=== PATIENT | male | born 1945 | race Caucasian/White ===

== ENCOUNTER 2025-07-10 13:07 | Emergency (ER) | payer MEDICARE ==
[2025-07-10 13:54] LABS: #Basophils 0.03 10x3/uL (0.0-0.2); #Eosinophils 1.21 10x3/uL (0.0-0.5); #Monocytes 0.71 10x3/uL (0.0-1.1); #Neutrophils 4.56 10x3/uL (1.5-8.4); %Basophils 0.4 % (0.0-2.0); %Eosinophils 16.0 % (0.0-6.0); %Lymphocytes 13.7 % (18.0-47.0); %Monocytes 9.4 % (0.0-10.0); %Neutrophils 60.2 % (40.0-75.0); Hematocrit 47.0 % (38.8-50.0); Hemoglobin 15.5 g/dL (13.5-17.5); Mean Corpuscular Hemoglobin 27.9 pg (27.0-33.0); Mean Corpuscular Volume 84.5 fL (81.2-95.1); Platelet Count 172 10x3/uL (150-450); Red Blood Cell (RBC) Count 5.56 10x6/uL (4.32-5.72); White Blood Cell (WBC) Count 7.57 10x3/uL (3.5-10.5)
[2025-07-10 14:10] LABS: ALT (SGPT) 18 U/L (Less than 45); AST (SGOT) 28 U/L (11-34); Albumin 3.8 g/dL (3.1-4.5); Alkaline Phosphatase 56 U/L (40-110); Anion Gap 12 mmol/L (10-20); BUN (Urea Nitrogen) 14 mg/dL (8.4-25.7); Bilirubin, Total 1.6 mg/dL (0.3-1.2); Calc. Creatinine Clearance 0 mL/min (70-130); Calcium 8.8 mg/dL (7.8-10.44); Carbon Dioxide 29 mmol/L (23-31); Chloride 103 mmol/L (98-107); Globulin 3.6 g/dL (2.4-3.5); Glucose 84 mg/dL (83-110); Potassium 4.1 mmol/L (3.5-5.1); Sodium 140 mmol/L (136-145)
[2025-07-10 14:19] LABS: Troponin I Less than 0.010 ng/mL (< 0.028)
[2025-07-10] MEDS ORDERED: Albuterol 2.5 MG (3 mL) NEB ONE (15:25)
== END 2025-07-10 16:54 | disposition home or self-care (01) ==
LOC: CSHERS 13:07
DX: U07.1 COVID-19 (principal); J11.1 Influenza due to unidentified influenza virus with other respiratory manifestations; I25.10 Atherosclerotic heart disease of native coronary artery without angina pectoris; I10 Essential (primary) hypertension; E11.9 Type 2 diabetes mellitus without complications
CPT/HCPCS: 71045; 80053; 84484; 85025; 93005; 94640; 94760; J1100; J7611